=== PATIENT | male | born 1970 | race Two or more races ===

== ENCOUNTER 2023-10-21 07:13 | Outpatient (CLI) | payer OTHER ==
[2023-10-21 07:58] LABS: HEMATOCRIT 42.8 % (39.0-48.0); HEMOGLOBIN 14.3 g/dL (13-16.00); MEAN CELL VOLUME 84.5 fL (80.0-100.00); MEAN CORPUSCULAR HEMOGLOBIN 28.2 pg (27.00-32.0); MEAN CORPUSCULAR HGB CONC 33.4 g/dl (32.0-36.0); PLATELET COUNT 203 K/uL (150-450); RED BLOOD COUNT 5.07 M/uL (4.00-6.00); RED CELL DISTRIBUTION WIDTH 15.7 % (11.5-14.5)
[2023-10-21 09:11] LABS: ALBUMIN 3.6 gm/dL (3.4-5.0); BILIRUBIN TOTAL 0.43 mg/dL (0.3-1.2); CHOL HDL RATIO 1.8 (0-5.0); CREATININE SERUM 0.8 mg/dL (0.70-1.30); GFR 100.36; GLOBULINA 4.3 G/DL (2.4-3.5); POTASSIUM 3.82 mEq/L (3.5-5.1); T4 FREE 1.3 NG/ML (0.76-1.46); TOTAL PROTEIN 7.9 gm/dL (6.4-8.2); TSH 1.4 uIU/mL (0.358-3.74)
== END 2023-10-21 07:18 | disposition home or self-care (01) ==
LOC: LAB 07:13
PROVIDERS: ATTEND Student in an Organized Health Care Education/Training Program
DX: E11.65 Type 2 diabetes mellitus with hyperglycemia (principal); E78.2 Mixed hyperlipidemia; I10 Essential (primary) hypertension; E03.8 Other specified hypothyroidism; C73 Malignant neoplasm of thyroid gland; D50.8 Other iron deficiency anemias

== ENCOUNTER 2024-01-24 07:38 | Outpatient (CLI) | payer OTHER ==
[2024-01-24 08:32] LABS: HEMATOCRIT 42.9 % (39.0-48.0); HEMOGLOBIN 14.6 g/dL (13-16.00); MEAN CELL VOLUME 84.4 fL (80.0-100.00); MEAN CORPUSCULAR HEMOGLOBIN 28.7 pg (27.00-32.0); PLATELET COUNT 205 K/uL (150-450); RED BLOOD COUNT 5.08 M/uL (4.00-6.00); RED CELL DISTRIBUTION WIDTH 15.3 % (11.5-14.5)
[2024-01-24 09:36] LABS: PH,URINE 5.5 (5.0-8.0); URINE APPEARANCE Clear; URINE BILIRRUBIN Negative (NEGATIVE); URINE BLOOD Negative; URINE COLOR Yellow; URINE KETONE Negative (NEGATIVE); URINE LEUKOCYTE Negative; URINE NITRATE Negative; URINE PROTEIN Negative (NEGATIVE); URINE UROBILINOGEN 0.2 E.U./dl
[2024-01-24 09:45] LABS: URINE EPITHELIAL CELLS 1.4 uL (0.0-38.8)
[2024-01-24 09:57] LABS: ALBUMIN 3.6 gm/dL (3.4-5.0); BILIRUBIN TOTAL 0.41 mg/dL (0.3-1.2); CHOL HDL RATIO 1.7 (0-5.0); CREATININE SERUM 1.08 mg/dL (0.70-1.30); GFR 70.98; GLOBULINA 3.9 G/DL (2.4-3.5); POTASSIUM 3.81 mEq/L (3.5-5.1); TOTAL PROTEIN 7.5 gm/dL (6.4-8.2)
[2024-01-24 09:58] LABS: CREATININE URINE RANDOM 88.3 MG/DL (30-125)
[2024-01-24 09:59] LABS: TSH 4.88 uIU/mL (0.358-3.74)
[2024-01-24 10:01] LABS: URINE BACTERIA 3.6 uL (0.0-1933); URINE GLUCOSE >=1000 MG/DL (NEGATIVE); URINE WBC 0.9 uL (0.0-23.2)
== END 2024-01-24 07:39 | disposition home or self-care (01) ==
LOC: LAB 07:38
PROVIDERS: ATTEND Student in an Organized Health Care Education/Training Program
DX: E11.65 Type 2 diabetes mellitus with hyperglycemia (principal); E78.2 Mixed hyperlipidemia; I10 Essential (primary) hypertension; D50.8 Other iron deficiency anemias; C73 Malignant neoplasm of thyroid gland; E78.01 Familial hypercholesterolemia; E72.11 Homocystinuria

== ENCOUNTER → 2024-03-09 09:50 | Outpatient (CLI) | payer OTHER | END | disposition home or self-care (01) | LOC: LAB 09:50 | DX: N40.0 Benign prostatic hyperplasia without lower urinary tract symptoms (principal) ==

== ENCOUNTER 2024-03-09 10:48 | Outpatient (CLI) | payer OTHER | END 2024-03-09 10:54 | disposition home or self-care (01) | LOC: RAD 10:48 | DX: M25.562 Pain in left knee (principal) ==

== ENCOUNTER → 2024-05-25 07:11 | Outpatient (CLI) | payer OTHER ==
[2024-05-25 08:11] LABS: HEMATOCRIT 42.5 % (39.0-48.0); HEMOGLOBIN 14.1 g/dL (13-16.00); MEAN CELL VOLUME 87.2 fL (80.0-100.00); MEAN CORPUSCULAR HEMOGLOBIN 28.8 pg (27.00-32.0); MEAN CORPUSCULAR HGB CONC 33.1 g/dl (32.0-36.0); PLATELET COUNT 213 K/uL (150-450); RED BLOOD COUNT 4.88 M/uL (4.00-6.00); RED CELL DISTRIBUTION WIDTH 14.8 % (11.5-14.5)
[2024-05-25 09:16] LABS: ALBUMIN 3.7 gm/dL (3.4-5.0); BILIRUBIN TOTAL 0.39 mg/dL (0.3-1.2); CALCIUM 8.8 mg/dL (8.5-10.1); CHOL HDL RATIO 2.2 (0-5.0); CREATININE SERUM 0.87 mg/dL (0.70-1.30); GFR 91.1; GLOBULINA 3.7 G/DL (2.4-3.5); POTASSIUM 3.74 mEq/L (3.5-5.1); TOTAL PROTEIN 7.4 gm/dL (6.4-8.2); TSH 2.23 uIU/mL (0.358-3.74)
== END | disposition home or self-care (01) ==
LOC: LAB 07:11
PROVIDERS: ATTEND Student in an Organized Health Care Education/Training Program
DX: E11.65 Type 2 diabetes mellitus with hyperglycemia (principal); E78.2 Mixed hyperlipidemia; I10 Essential (primary) hypertension; C73 Malignant neoplasm of thyroid gland; D50.8 Other iron deficiency anemias

== ENCOUNTER 2024-11-07 07:13 | Outpatient (CLI) | payer OTHER ==
[2024-11-07 08:51] LABS: ALT/SGPT 34.0 U/L (12-78); AST/SGOT 13.0 U/L (15-37); BILIRUBIN TOTAL 0.51 mg/dL (0.3-1.2); BUN CREA RATIO 17.0 (7.0-25.0); CHOL HDL RATIO 1.9 (0-5.0); CREATININE SERUM 0.77 mg/dL (0.70-1.30); GFR 104.51; GLOBULINA 3.7 G/DL (2.4-3.5); GLUCOSE FASTING 170.0 mg/dL (65-100); HDL 68.0 mg/dl (40-60); LDL 52.0 mg/dl (0-130); OSMOLALITY SERUM 291.0 MOSM/KG (275-295); VLDL 12.0 (0-39)
== END 2024-11-07 07:14 | disposition home or self-care (01) ==
LOC: LAB 07:13
PROVIDERS: ATTEND Student in an Organized Health Care Education/Training Program
DX: E11.65 Type 2 diabetes mellitus with hyperglycemia (principal); E78.2 Mixed hyperlipidemia; I10 Essential (primary) hypertension

== ENCOUNTER 2025-01-31 06:38 | Outpatient (CLI) | payer OTHER ==
[2025-01-31 07:51] LABS: ALT/SGPT 33.0 U/L (12-78); AST/SGOT 13.0 U/L (15-37); BILIRUBIN TOTAL 0.36 mg/dL (0.3-1.2); BUN CREA RATIO 17.0 (7.0-25.0); CHOL HDL RATIO 1.8 (0-5.0); CREATININE SERUM 0.86 mg/dL (0.70-1.30); GFR 91.99; GLOBULINA 4.0 G/DL (2.4-3.5); GLUCOSE FASTING 121.0 mg/dL (65-100); HDL 64.0 mg/dl (40-60); LDL 44.0 mg/dl (0-130); OSMOLALITY SERUM 291.0 MOSM/KG (275-295); VLDL 9.0 (0-39)
== END 2025-01-31 07:22 | disposition home or self-care (01) ==
LOC: LAB 06:38
PROVIDERS: ATTEND Student in an Organized Health Care Education/Training Program
DX: E11.65 Type 2 diabetes mellitus with hyperglycemia (principal); E78.2 Mixed hyperlipidemia; I10 Essential (primary) hypertension